=== PATIENT | male | born 1960 | race Caucasian/White ===

== ENCOUNTER 2018-07-04 11:42 | Emergency (ER) | payer BC, MEDICAID, SELFPAY ==
[2018-07-04 11:59] VITALS: BP 160/91; PULSE 89; RESP 16; TEMP 36.8; O2SAT 96
[2018-07-04 13:32] LABS: Bilirubin Negative (Negative); Blood Negative (Negative); Clarity Clear; Glucose Negative (Negative); Ketones Negative (Negative); Leukocyte Esterase Negative (Negative); Nitrite Negative (Negative); Urobilinogen 0.2 EU/dL (Up TO 0.2)
[2018-07-04] MEDS: Ketorolac 30 MG/ML VIAL IVP (13:46)
[2018-07-04] MEDS: Normal Saline 1,000 ML 1000 ML IV (13:47)
[2018-07-04 13:49] LABS: Abs Immature Grans 0.01 k/cumm (0.0-0.09); Absolute Basophil Count 0.05 k/cumm (0.0-0.2); Absolute Eosinophil Count 0.26 k/cumm (0.0-0.7); Absolute Lymphocyte Count 2.99 k/cumm (1.2-3.4); Absolute Monocyte Count 0.64 k/cumm (0.11-0.7); Absolute Neutrophil Count 4.34 k/cumm (1.2-6.7); Basophils % 0.6; Eosinophils % 3.1; HCT 46.2 % (40.0-50.0); HGB 15.3 g/dL (13.5-17.5); Immature Grans % 0.1; Lymphocytes % 36.1; Mean Corp. HGB Concentration 33.1 g/dL (32.0-36.0); Mean Corpuscular Hemoglobin 29.5 pg (27.0-33.0); Mean Corpuscular Volume 89.2 fL (80-95); Mean Platelet Volume 8.7 fL (8.0-11.0); Monocytes % 7.7; Neutrophils % 52.4; Platelet Count 357 x1000/uL (130-400); RBC 5.18 m/cumm (4.50-6.00); RBC Distribution Width 12.8 % (11.8-14.1); White Blood Cell Count 8.29 k/cumm (4.4-10.8)
[2018-07-04 14:01] LABS: ALT 44 U/L (12-78); AST 27 U/L (15-37); Albumin 4.1 g/dL (3.4-5.0); Alkaline Phosphatase 76 U/L (46-116); Anion Gap 10.4 mmol/L (3-11); BUN 14 mg/dL (7-18); Bilirubin, Total 0.2 mg/dL (0.2-1.0); CO2 29.6 mmol/L (21.0-32.0); CREATININE 0.97 mg/dL (0.70-1.30); Calcium 9.7 mg/dL (8.5-10.1); Chloride 104 mmol/L (98-107); Glucose 95 mg/dL (70-100); Potassium 4.4 mmol/L (3.5-5.1); Sodium 144 mmol/L (136-145); Total Protein 8.4 g/dL (6.4-8.2)
--- NOTE | 2018-07-04 14:19 | ED.GENADUL_ITS ---
Discharge Plan Disposition Patient Disposition: HOME Condition: Stable Discharge Details Chief Complaint: Abd Prob Clinical Impression: Inguinal hernia, Right varicocele Primary Care Provider: None,None ED Provider: Staci Connor Home Meds and New Rx's Prescriptions: No Action No Known Home Meds RF: 0 Discharge Instructions Instructions: Inguinal Hernia (ED), Varicocele (ED) Additional Instructions: Apply ice to the affected area several times daily for 20 minutes at a time. Alternate Tylenol and Motrin for your pain as needed and directed. You will receive a call from care management regarding a follow-up appointment with a primary care doctor. 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 You were also given referral for general surgery for follow-up for your inguinal hernia. Return immediately to the emergency department any worsening or new concerning symptoms. Stand Alone Forms: Work Release Referrals: Aleksandar Marie MD [ [facility] STAFF PHYSICIAN] - Patsy Aguilar DO [OSTEOPATHIC DOCTOR] - Discharge Data Discharge Date/Time-TO BE ENTERED AT DEPARTURE: 07/04/18 16:00 Discharge Physician: Staci Connor Medical Decision Making 58-year-old male who presents with complaint of intermittent right groin and scrotal pain for the past 2 days. No urinary symptoms, cauda equina symptoms, fever, vomiting, diarrhea. Does frequent lifting at home and at work but denies known specific injury . Blood pressure mildly hypertensive, otherwise vitals within normal limits. Abdomen soft and nontender. Patient has a noted soft mobile mass in the right scrotum which he states has been chronic for the past several years but has grown in size. Patient does not have a primary care doctor. Remainder of scrotal exam within normal limits, no abdominal wall defect, no mass or bulge noted, no evidence of testicular edema, erythema or tenderness. Differential diagnosis includes inguinal hernia, groin strain, and less likely appendicitis, epididymitis, UTI. As he has no complaint of isolated testicular pain, and a normal testicular exam, I doubt testicular torsion. I did discuss with patient that we do not have ultrasound available, but we can proceed with lab and CT imaging. Patient initially declined any workup here and stated he would rather follow-up with a PCP as an outpatient. Patient was eventually agreeable with workup. 1500 --labs and imaging reviewed. Labs unremarkable. CT notes a right small inguinal hernia with suggestion of a varicocele but no acute findings. Patient given referral for general surgery for reevaluation. Patient is instructed to apply ice, alternate Tylenol and Motrin, and to return here immediately with any worsening symptoms of fever or worsening pain. Will place patient on care management list to arrange for follow-up appointment with primary care doctor. Pt also given referral for urology for varicocele/chronic mass in R scrotum. Medical Records Medical records reviewed: Yes I reviewed the patient's medical records. Imaging Data Radiologic Study: Radiologist's impression: CT Abdomen and Pelvis With Contrast EXAM DATE/TIME: 07/04/2018 1:06 PM FINDINGS: The appendix is normal. Normal appearing solid organs. No intestinal obstruction. No obstructive uropathy. No free fluid. No free air. No inflammatory changes. IMPRESSION: 1. Small right-sided inguinal hernia with a suggestion of a varicocele. 2. No other specific etiology identified for the patient's symptoms. Lab Data Lab results reviewed: Yes I reviewed the patient's lab results. Laboratory Tests Range/Units 07/04/18 07/04/18 07/04/18 13:22 13:41 13:41 WBC (4.4-10.8) k/cumm 8.29 RBC (4.50-6.00) m/cumm 5.18 Hgb (13.5-17.5) g/dL 15.3 Hct (40.0-50.0) % 46.2 MCV (80-95) fL 89.2 MCH (27.0-33.0) pg 29.5 MCHC (32.0-36.0) g/dL 33.1 RDW (11.8-14.1) % 12.8 Plt Count (130-400) x1000/uL 357 MPV (8.0-11.0) fL 8.7 Immature Gran % 0.1 Neutrophils % 52.4 Lymphocytes % 36.1 Monocytes % 7.7 Eosinophils % 3.1 Basophils % 0.6 Absolute Neutrophils (1.2-6.7) k/cumm 4.34 Absolute Lymphocytes (1.2-3.4) k/cumm 2.99 Absolute Monocytes (0.11-0.7) k/cumm 0.64 Absolute Eosinophils (0.0-0.7) k/cumm 0.26 Absolute Basophils (0.0-0.2) k/cumm 0.05 Sodium (136-145) mmol/L 144 Potassium (3.5-5.1) mmol/L 4.4 Chloride (98-107) mmol/L 104 Carbon Dioxide (21.0-32.0) mmol/L 29.6 Anion Gap (3-11) mmol/L 10.4 BUN (7-18) mg/dL 14 Creatinine (0.70-1.30) mg/dL 0.97 Estimated GFR/1.73 m2 (mL/min/1.73m2) >= 60.00 Glucose (70-100) mg/dL 95 Calcium (8.5-10.1) mg/dL 9.7 Total Bilirubin (0.2-1.0) mg/dL 0.2 AST (15-37) U/L 27 ALT (12-78) U/L 44 Alkaline Phosphatase (46-116) U/L 76 Total Protein (6.4-8.2) g/dL 8.4 H Albumin (3.4-5.0) g/dL 4.1 Urine Color (Yellow) Yellow Urine Clarity Clear Urine pH (5-8) 7.0 Ur Specific [place] (1.005-1.025) 1.010 Urine Protein (Negative) mg/dL Negative Urine Ketones (Negative) mg/dL Negative Urine Blood (Negative) Negative Urine Nitrite (Negative) Negative Urine Bilirubin (Negative) Negative Urine Urobilinogen (Up TO 0.2) EU/dL 0.2 Ur Leukocyte Esterase (Negative) Negative Urine Glucose (Negative) mg/dL Negative HPI General Mode of arrival: ambulatory . Date/Time Provider Initiated Documentation: 07/04/18 12:04 . Limitations to Documentation: no limitations . Information obtained by: patient . HPI Narrative: Patient is a 58-year-old male who presents to the ED with a complaint of right groin and scrotal pain for the past 2 days. Patient states the pain is intermittent, feels aching, with occasional radiation into his right thigh. Patient states he does frequent heavy [place] at work [place] but does not recall specific injury. Patient states his maximum weight of lifting is usually approximate 50 pounds. He denies any urinary symptoms, testicular swelling or redness, urinary or fecal incontinence, saddle anesthesia, leg weakness or numbness. Patient denies any known history of hernia. Related Data Home Medications Medication Instructions Recorded Confirmed Unknown [No Known Home Meds] 07/04/18 07/04/18 Allergies Allergy/AdvReac Type Severity Reaction Status Date / Time No Known Allergies Allergy Unverified 07/04/18 11:59 General Stated Complaint: Abd Prob LEIA: 3 Review of Systems Review of Systems All systems reviewed & are unremarkable except as noted in HPI and below Constitutional Reports as per HPI, Denies chills and Denies fever(s) Eyes Denies blurry vision ENT Denies dizziness, Denies sore throat and Denies throat swelling Cardiovascular Denies chest pain and Denies dyspnea Respiratory Denies cough and Denies dyspnea Gastrointestinal Reports abdominal pain, Denies diarrhea, Denies vomiting and Reports other Genitourinary Denies hematuria, Denies dysuria, Denies scrotal swelling, Reports testicular pain and Reports other (R groin pain) Musculoskeletal Denies back pain and Denies numbness Integumentary/Breasts Denies lesions and Denies rash Neurologic Denies dizziness, Denies focal weakness and Denies numbness Allergic/Immunologic Denies throat swelling [facility] Medical History No significant past medical history (Acute) Surgical History History of abdominal surgery (Acute) Social History Smoking and Tabacco status: Never alcohol intake: never substance use type: does not use Exam Const General: cooperative, healthy appearing and no acute distress [facility] Head: normal to inspection Face and sinus: normal facial exam Eyes General: appearance normal, both eyes and all related structures EOM: EOM intact bilaterally Neck Neck: normal visual inspection and No submandibular swelling Lymphatic: no lymphadenopathy noted Chest Chest: normal inspection of the chest and no tenderness Resp Effort & Inspection: normal respiratory effort and able to speak in complete sentences Auscultation: clear to auscultation bilaterally Cardio Rate: regular rate Rhythm: regular rhythm GI Inspection: normal to inspection Palpation: soft, not firm, not rigid and nontender Auscultation: normal bowel sounds Other: Abdomen soft and nontender. No abdominal wall defect noted. No mass or bulge noted. Penis: normal penis Other: There is an approximate 2 x 2 centimeter circular smooth mobile mass in the right scrotum. The scrotum is normal otherwise without edema, erythema, tenderness to the testicles, rash or lesions. No bulge noted in the right groin. No mass noted upon standing. No bulging or mass noted with coughing. No abdominal wall defect noted on exam Back/Spine/Pelvis Thoracic/Lumbar Spine: thoracic and lumbar spine normal to inspection Pelvis: no pain with anterior-posterior compression Skin General skin exam: no rashes or lesions noted Neuro General: alert, awake and oriented x3 Cognition: normal cognition Speech: speech normal Motor: muscle tone normal throughout Sensory Exam: no sensory deficits noted Extrem General: normal to inspection, full ROM, normal capillary refill, no calf tenderness bilaterally and no edema Psych Appearance: grossly normal Mental Status: mental status grossly normal Speech and Movement: speech and movement normal Affect: normal affect Course Vital Signs Temperature 98.2 F 07/04/18 11:59 Pulse 89 07/04/18 11:59 Respiratory Rate 16 07/04/18 11:59 Blood Pressure 160/91 H 07/04/18 11:59 Pulse Oximetry 96 07/04/18 11:59 Temperature 98.2 F 07/04/18 11:59 Temperature Source Temporal Artery Scan 07/04/18 11:59 Pulse 89 07/04/18 11:59 Respiratory Rate 16 07/04/18 11:59 Respiratory Effort 07/04/18 11:59 Blood Pressure 160/91 H 07/04/18 11:59 Blood Pressure Position Sitting 07/04/18 11:59 Pulse Oximetry 96 07/04/18 11:59 Oxygen Delivery Method Room Air 07/04/18 11:59 Oxygen Flow Rate 0 07/04/18 11:59 Pain Level 10 07/04/18 14:17 Lab/Test Results Lab/Test Results: Laboratory Tests Range/Units 07/04/18 07/04/18 07/04/18 13:22 13:41 13:41 WBC (4.4-10.8) k/cumm 8.29 RBC (4.50-6.00) m/cumm 5.18 Hgb (13.5-17.5) g/dL 15.3 Hct (40.0-50.0) % 46.2 MCV (80-95) fL 89.2 MCH (27.0-33.0) pg 29.5 MCHC (32.0-36.0) g/dL 33.1 RDW (11.8-14.1) % 12.8 Plt Count (130-400) x1000/uL 357 MPV (8.0-11.0) fL 8.7 Immature Gran % 0.1 Neutrophils % 52.4 Lymphocytes % 36.1 Monocytes % 7.7 Eosinophils % 3.1 Basophils % 0.6 Absolute Neutrophils (1.2-6.7) k/cumm 4.34 Absolute Lymphocytes (1.2-3.4) k/cumm 2.99 Absolute Monocytes (0.11-0.7) k/cumm 0.64 Absolute Eosinophils (0.0-0.7) k/cumm 0.26 Absolute Basophils (0.0-0.2) k/cumm 0.05 Sodium (136-145) mmol/L 144 Potassium (3.5-5.1) mmol/L 4.4 Chloride (98-107) mmol/L 104 Carbon Dioxide (21.0-32.0) mmol/L 29.6 Anion Gap (3-11) mmol/L 10.4 BUN (7-18) mg/dL 14 Creatinine (0.70-1.30) mg/dL 0.97 Estimated GFR/1.73 m2 (mL/min/1.73m2) >= 60.00 Glucose (70-100) mg/dL 95 Calcium (8.5-10.1) mg/dL 9.7 Total Bilirubin (0.2-1.0) mg/dL 0.2 AST (15-37) U/L 27 ALT (12-78) U/L 44 Alkaline Phosphatase (46-116) U/L 76 Total Protein (6.4-8.2) g/dL 8.4 H Albumin (3.4-5.0) g/dL 4.1 Urine Color (Yellow) Yellow Urine Clarity Clear Urine pH (5-8) 7.0 Ur Specific [place] (1.005-1.025) 1.010 Urine Protein (Negative) mg/dL Negative Urine Ketones (Negative) mg/dL Negative Urine Blood (Negative) Negative Urine Nitrite (Negative) Negative Urine Bilirubin (Negative) Negative Urine Urobilinogen (Up TO 0.2) EU/dL 0.2 Ur Leukocyte Esterase (Negative) Negative Urine Glucose (Negative) mg/dL Negative
[2018-07-04] MEDS: Omnipaque 350 MG/ML 100 ML BTL IJ (14:25)
[2018-07-04] MEDS: Normal Saline Flush 10 ML SYR IVP (14:32)
--- NOTE | 2018-07-04 14:35 | DI.CT_ITS ---
SYMPTOMS/DIAGNOSIS: RIGHT GROIN PAIN, ? INGUINAL HERNIA CT SCAN OF THE ABDOMEN AND PELVIS: CT scan of the abdomen and pelvis was performed following the uneventful administration of intravenous contrast material. There are no priors for comparison. The lung bases are clear. Mild dependent atelectatic changes are seen in the lung bases. The liver is normal in size. No evidence of a hepatic mass is seen. The portals, superior mesenteric and splenic veins are patent. The gallbladder is negative. There is no biliary ductal dilatation. The pancreas, spleen and adrenal glands are unremarkable. The kidneys show normal and symmetric enhancement. No evidence of a solid renal mass or obstruction. The urinary bladder is intact. The reproductive organs are unremarkable. The abdominal aorta is of normal caliber with mild atherosclerosis. No aneurysmal dilatation is seen. No significant abdominal or pelvic adenopathy, ascites or pneumoperitoneum is present. The bowel shows no evidence of obstruction or inflammation. There is a normal appendix present. There is a right inguinal hernia containing an unremarkable loop of small bowel. No evidence of incarceration or strangulation is seen. Within the hernia, there is enhancing vascularity, which may represent a varicocele. Incompletely imaged in the scrotal sac is slightly enhancing soft tissue, which extends from the inguinal canal into the scrotal sac. Testicular ultrasound is recommended for further evaluation. No acute osseous abnormality is identified. IMPRESSION: 1. Right inguinal hernia containing an unremarkable loop of small bowel without evidence of strangulation or obstruction. 2. Vascular enhancement seen within the right inguinal canal, which may represent a varicocele. 3. Incompletely imaged, slightly hyperdense material seen extending from the distal inguinal canal into the scrotal sac. There does appear to be some fluid around this. A testicular ultrasound is recommended for further evaluation. Additionally, a repeat CT scan of the pelvis to include the scrotal sac may be considered.
--- NOTE | 2018-07-04 15:11 | DI.VRAD_ITS ---
Addendum created by Carlitos Márquez MD on 07/04/2018 3:24:22 PM EST THIS REPORT CONTAINS FINDINGS THAT MAY BE CRITICAL TO PATIENT CARE. The findings were verbally communicated via telephone conference with becky evangelista at 3:24 PM ESTon 07/04/2018The findings were acknowledged and understood. Initial report created on 07/04/2018 3:11:30 PM EST EXAM: CT Abdomen and Pelvis With Contrast EXAM DATE/TIME: 07/04/2018 1:06 PM CLINICAL HISTORY: 58 years old, male; Signs and symptoms; Other: R groin pain, R/O inguinal hernia TECHNIQUE: Axial computed tomography images of the abdomen and pelvis with intravenous contrast. All CT scans at this facility use at least one of these dose optimization techniques: automated exposure control; mA and/or kV adjustment per patient size (includes targeted exams where dose is matched to clinical indication); or iterative reconstruction. Coronal and sagittal reformatted images were created and reviewed. CONTRAST: 100 ml of 100 administered intravenously. COMPARISON: No relevant prior studies available. FINDINGS: The appendix is normal. Normal appearing solid organs. No intestinal obstruction. No obstructive uropathy. No free fluid. No free air. No inflammatory changes. IMPRESSION: 1. Small right-sided inguinal hernia with a suggestion of a varicocele. 2. No other specific etiology identified for the patient's symptoms. Dictated and Authenticated by: Carlitos Márquez MD. Ordering:MARY JANE Small MD
--- NOTE | 2018-07-06 09:23 | PDOC.ERCMPRO ---
Care Management Progress Note 07/06-Dr. Connor requested assistance with PCP (Srinivasan sedimentationist), surgical and urology f/u for right groin strain/hernia in 1-2 weeks. Referral faxed to [facility], [facility], and [facility] this am.
--- NOTE | 2018-07-06 09:25 | CMPROGNOTE_ITS ---
Care Management Progress Note 07/06-Dr. Connor requested assistance with PCP (Srinivasan sponge fisherman), surgical and urology f/u for right groin strain/hernia in 1-2 weeks. Referral faxed to [facility], [facility], and [facility] this am.
== END 2018-07-04 16:00 | disposition home or self-care (01) ==
PROVIDERS: Emergency Provider Physician Assistant
DX: K40.90 Unilateral inguinal hernia, without obstruction or gangrene, not specified as recurrent (principal)
CPT/HCPCS: 80053; 96361; 96374; 99285; 74177; 81003; 85025; 99284; J1885; J3490